=== PATIENT | male | born 1980 | race Caucasian/White ===

== ENCOUNTER 2017-05-22 08:49 | Emergency (ER) | payer BC ==
[2017-05-22] MEDS ORDERED: Ondansetron HCl/PF 4 MG/2 ML Vial ONE (09:07)
[2017-05-22] MEDS ORDERED: Ketorolac Tromethamine 30 MG/ML VIAL ONE (09:07)
[2017-05-22] MEDS ORDERED: Morphine 4 MG/ML Carpuject ONE (09:20)
[2017-05-22 09:23] LABS: #Basophils 0.1 thou/uL (0.0-0.2); #Eosinphils 0.1 thou/uL (0.0-0.7); #Lymphocytes 2.4 thou/uL (1.20-3.40); #Monocytes 0.5 thou/uL (0.11-0.59); #Neutrophils 10.5 thou/uL (1.40-6.50); %Basophils 0.8 % (0.0-1.0); %Eosinophils 0.8 % (0.0-10.0); %Lymphocytes 17.5 % (21.0-51.0); %Monocytes 3.6 % (0.0-10.0); Hematocrit 47.2 % (42.0-52.0); Mean Platelet Volume 6.1 fL (7.4-10.4); Red Blood Cell (RBC) Count 5.09 mill/uL (4.70-6.10); White Blood Cell (WBC) Count 13.6 thou/uL (4.8-10.8)
[2017-05-22 09:34] LABS: ALT (SGPT) 67 U/L (8-55); AST (SGOT) 26 U/L (5-34); Alkaline Phosphatase 47 U/L (40-150); Anion Gap 16 mmol/L (10-20); BUN (Urea Nitrogen) 15 mg/dL (8.9-20.6); Bilirubin, Total 1.3 mg/dL (0.2-1.2); Calc. Creatinine Clearance 0 mL/min (70-130); Calcium 9.3 mg/dL (7.8-10.44); Carbon Dioxide 24 mmol/L (22-29); Chloride 103 mmol/L (98-107); Estimated GFR-MDRD 77; Globulin 2.7 g/dL (2.4-3.5); Lipase 31 U/L (8-78); Protein, Total 7.1 g/dL (6.0-8.3)
--- NOTE | 2017-05-22 12:39 | CT ---
ABDOMEN CT WITHOUT CONTRAST PELVIC CT WITHOUT CONTRAST: Date: 05/22/17 HISTORY: Left lower quadrant pain. COMPARISON: None. TECHNIQUE: Abdomen and pelvic CT performed without IV contrast. Coronal reformatted images are submitted for int erpretation. FINDINGS: ABDOMEN CT: Lung bases are clear. Symmetric attenuation of psoas muscles. Visualized aorta has a normal caliber. No periaortic fat stra nding. Limited evaluation of the solid organs due to lack of IV contrast. Grossly, no solid organ abnormalit y. Gallbladder is unremarkable. No mesenteric mass, lymphadenopathy, free air, or free fluid. Limited evaluation of the alimentary canal due to lack of oral contrast. No evidence of bowel obstruc tion. Normal caliber appendix. Ileocecal junction is normal. Scattered fecal material in a nondistend ed, nondilated colon. CT evidence of diverticulosis, without evidence of diverticulitis. With regard to the right kidney, no evidence of obstructive uropathy. Subcentimeter hypodensity in th e mid portion of the right kidney cannot be further characterized. There are two discrete 1-2 mm calcifications of left renal pelvis without associated obstruction. The re is mild left-sided hydronephrosis and hydroureter secondary to two separate calcifications noted i n the mid portion of the left ureter measuring 0.5 and 0.7 cm, respectively. Beyond the second ureter al calculus, there is no evidence of dilatation. PELVIC CT: No mass, lymphadenopathy, free air, or free fluid. Urinary bladder is unremarkable for calculi. There are no lytic or blastic lesions in the osseous structures. There is a lipoma along the lateral aspect of the left hip. This fatty lesion measures 6.0 x 3.2 cm. IMPRESSION: 1. Mild left-sided obstructive uropathy secondary to two separate left ureteral calculi. 2. Nonobstructing calcifications in the left renal pelvis. 3. Indeterminate hypodensity in the right kidney. 4. Normal caliber appendix. 5. Diverticulosis, without evidence of diverticulitis. 6. Left hip lipoma. POS: [facility]
== END 2017-05-22 10:25 | disposition home or self-care (01) ==
LOC: SCSER 08:49
DX: N13.2 Hydronephrosis with renal and ureteral calculous obstruction (principal); E11.9 Type 2 diabetes mellitus without complications; E78.5 Hyperlipidemia, unspecified; I10 Essential (primary) hypertension; Z79.84 Long term (current) use of oral hypoglycemic drugs; Z79.899 Other long term (current) drug therapy
CPT/HCPCS: 74176; 80053; 83690; 85025; 96361; 96374; 96375; J1885; J2270; J2405